=== PATIENT | female | born 1955 | race Caucasian/White ===

== ENCOUNTER → 2025-02-17 | Outpatient (CLI) | payer OTHER, SELFPAY ==
[2025-02-20 16:08] LABS: H. PYLORI STOOL AG Negative (Negative)
== END | disposition home or self-care (01) ==
LOC: LABSPEC 13:49
PROVIDERS: PCP Nurse Practitioner Family; Referring Provider Nurse Practitioner Acute Care; Visit Provider Nurse Practitioner Acute Care
DX: R10.9 Unspecified abdominal pain (principal); R14.0 Abdominal distension (gaseous); R63.4 Abnormal weight loss
CPT/HCPCS: 87338

== ENCOUNTER 2025-04-25 05:19 | Day surgery (SDC) | payer SELFPAY, OTHER ==
[2025-04-25] VITALS (8 sets, daily range): BP systolic 107–149; BP diastolic 54–62; PULSE 60–72; RESP 12–18; TEMP 36.2–36.5; O2SAT 99–100; BMI 23.4
--- OUTSIDE RECORDS SUMMARY | 2025-04-25 05:22 | XMS RPT_ITS | CCD ---
Author Organization [facility] Care Team Providers Care Eye Physician Name Role Phone IDNIANA DUGAN DO Attending Unavailable INDIANA DUGAN DO Primary Care Unavailable INDIANA DUGAN DO Admitting Unavailable TE CALIX Consulting Unavailable PROVIDER, UNKNOWN Consulting Unavailable JONATHAN SIMON NP-C Primary Care Unavailable JONATHAN SIMON NP-C Admitting Unavailable TE CALIX Consulting Unavailable JONATHAN SIMON NP-C Attending Unavailable PROVIDER, UNKNOWN Consulting Unavailable Alfred BENEFITS ANALYST-C, Jonathan Cai Primary Care Provider Alfred BENEFITS ANALYST-C, Jonathan Cai Referring Provider Kurt BENEFITS ANALYST-CSruthi Attending Provider Kurt BENEFITS ANALYST-CSruthi Referring Provider Alfred CHAVARRIA, Jonathan Cai Primary Care Unavailgabe e Sruthi Hicks Attending Unavailable Alfred CHAVARRIA, Jonathan Cai Referring Unavailgabe e Alfred CHAVARRIA, Jonathan Cai Primary Care Unavailgabe e Sruthi Hicks Referring Unavailable Sruthi Hicks Attending Unavailable Alfred CHAVARRIA, Jonathan Ayala Primary Care Unavailabl e Favio Frost Attending Unavailable Alfred BENEFITS ANALYST, Jonathanmickey Cai Referring Unavailabl e Medications Current Medications Medication Drug Class(es) Dates Sig (Normalized) Sig (Original) calcium acetate 667 mg oral tablet (1 source) Start: 02-15-2025 take 1 tablet by mouth once Calcium Acetate 667 mg tablet Active 667 mg PO ONCE February 15, 2025 12:00am factor 5 (1 source) Start: 02-15-2025 factor 5 Active PO February 15, 2025 12:00am Garlic (1 source) Non-Standardized Food Allergenic Extract Start: 02-15-2025 take 1 capsule by mouth once daily Garlic 500 mg capsule Active 500 mg PO daily February 15, 2025 12:00am Magnesium (1 source) Start: 02-15-2025 take 1 tablet by mouth once daily Magnesium 250 mg tablet Active 250 mg PO daily February 15, 2025 12:00am Multivitamin tablet (1 source) Start: 02-15-2025 Multivitamin tablet Active 1 {tbl} PO EVERY MORNING February 15, 2025 12:00am Eola-3 Fatty Acids 1,000 mg capsule (1 source) Start: 02-15-2025 take 1 capsule by mouth once daily Eola-3 Fatty Acids 1,000 mg capsule Active 1000 mg PO daily February 15, 2025 12:00am Problems Active Problems Problem Classification Problem Date Documented Da te Episodic/Chronic Abdominal pain (4 sources) Abdominal pain; Translations: [Unspecified abdominal pain] Onset: 02-15-2025 02-15-2025 Episodic Other gastrointestinal disorders (2 sources) Abdominal bloating; Translations: [Abdominal distension (gaseous)] 02-15-2025 Episodic Other gastrointestinal disorders (1 source) Abdominal distension (gaseous); Translations: [Abdominal distension (gaseous)] Onset: 02-15-2025 Episodic Other nutritional; endocrine; and metabolic disorders (2 sources) Weight decreased; Translations: [Abnormal weight loss] 02-15-2025 Episodic Other nutritional; endocrine; and metabolic disorders (1 source) Abnormal weight loss; Translations: [Abnormal weight loss] Onset: 02-15-2025 Episodic Residual codes; unclassified (2 sources) Family history of cancer of colon; Translations: [Family history of malignant neoplasm of digestive organs] 02-15-2025 Episodic Comment on above: Mother in her 40's Residual codes; unclassified (1 source) Family history of malignant neoplasm of digestive organs; Translations: [Family history of malignant neoplasm of digestive organs] Onset: 02-15-2025 Episodic Past or Other Problems Problem Classification Problem Date Documented Da te Episodic/Chronic Other acquired deformities (3 sources) Spondylolisthesis, lumbar region; Translations: [Spondylolisthesis , lumbar region] Onset: 02-03-2024 Episodic Spondylosis; intervertebral disc disorders; other back problems (2 sources) Radiculopathy, lumbar region; Translations: [Spinal stenosis, lumbar region without neurogenic claudication] Onset: 02-03-2024 Episodic Results Test Name Value Interpretation Reference Range Facility H. PYLORI STOOL AGon 025 H PYLORI STL AG Negative Normal Negative [facility] Comment on above: Result Comment: Perf ormed at: CB - [facility] [place] [address], [place] [id number] Performance Makeup Artist: Hoang Franklin PhD, Phone: [phone] Performed By: #### L 3100.1950 #### [facility] [address] [place], [place], [address] H. pylori Ag IA Ql (Stl)Orde red By: Sruthi Hicks on 02-17-2025 Stool Helicobacter pylori Antigen Negative Negative [facility] Comment on above: Performed at: CB - [facility] [id number], [place] [id number] Director: Hoang Franklin PhD, Phone: [phone] Gastroenterology Visit Repor ton 02-15-2025 Gastroenterology Visit Report [facility] [address] [place] [address] OFFICE VISIT Date of Service: 02/15/25 MR#: [id number] Acct: [id number] Name: JUAN JOSE GAXIOLA Rep #: [id number] : 1955 Provider: KARMEN pickett Age/Sex: 70/F Location: [facility] Status: Signed Intake Vital Signs 02/15/25 09:41 Height 5 ft 3 in Weight: 147 lb 8 oz BMI 26.1 BP 165/84 H Respiration 18 Pulse 75 Pulse Oximetry (%) 98 Oxygen Delivery Method room air Intake Visit Reasons: PRE COLON Chief Complaint: epigastric heaviness Supply Chain Buyer Required: No Accompanied by: Is patient in pain?: Yes Allergies No Known Allergies Allergy (Unverified 02/15/25 09:38) Medications ???Medication ???Instructions ???Recorded ???Confirmed ???Type calcium acetate 667 mg tablet 667 mg PO ONCE 02/15/25 02/15/25 H istory factor 5 PO 02/15/25 History garlic 500 mg capsule 500 mg PO QDAY 02/15/25 02/15/25 H istory magnesium 250 mg tablet 250 mg PO QDAY 02/15/25 02/15/25 H istory multivitamin 1 tab PO QAM 02/15/25 02/15/25 His tory omega-3 fatty acids 1,000 mg 1,000 mg PO QDAY 02/15/25 02/15/25 History capsule Have you fallen in the past year?: No PFSH Medical History H pylori ulcer Family History Other Colon cancer Social History Smoking Status: Never smoker alcohol intake: never substance use type: does not use HPI HPI Chief Complaint: epigastric heaviness Details: JUAN JOSE GAXIOLA, is a 70 F who presents to the office today for - seen in office today with her Her family history is significant for colon cancer - mom in her 40's - she is uncertain when her last colonoscopy was - thinks this was 10-15 years ago - denies any bleeding - c/o a lot of rumbling and a cramp - improves with abdominal massage - she has a BM daily - c/o epigastric pressure for quite awhile - worse after eating - denies any N/V - weight loss of 12lbs in the past 2-3 months - denies any HB - c/o bloating - h/o CCX - denies smoking - denies use of NSAIDS - denies any heart, lung or kidney disease [facility] reviewed no current pertinent records available reviewed Dr. Te ferro note ROS Const Constitutional: Positive for weight change (loss); No fatigue or fever(s) ENT ENT: No difficulty swallowing Gastro GI: Positive for abdominal pain, bloating, constipation and heartburn; No belching, change in bowel habits, change in stool character, coffee ground emesis, cramping, diarrhea, difficulty swallowing, feeling full early, excessive flatus, incontinent of stools, Vomiting blood/hematemesis, Blood in stool, loose stools, Black,tarry stools, nausea/dyspepsia, pain with swallowing, vomiting or other Musc Musculoskeletal: Positive for numbness, tingling, sciatica and leg pain at night; No joint pain Skin Skin: No yellowing of the eye or itchy eyes Neuro Neurology: Positive for numbness and tingling Psych Psychiatric: No anxiety and No depression Endo Endocrine: Positive for weight change (loss); No fatigue Aller/Imm Allergy/Immunologic: No itchy eyes Poli/Lymp Hematologic/Lymphatic: No easy bleeding or easy bruising Exam Const General: cooperative, healthy appearing, no acute distress and well developed Nutritional Appearance: average body habitus and well nourished Orientation: alert and oriented x3 HENMT Head: normocephalic Ears: hearing grossly normal bilaterally Mouth: moist mucous membranes Teeth and gingiva: dentures (upper) Eyes Conjunctivae: conjunctivae normal Sclera: sclerae normal Neck Neck: normal visual inspection, full ROM and trachea midline Resp Effort Inspection: normal respiratory effort, able to speak in complete sentences and symmetric chest movement Auscultation: Bilateral: Clear to Auscultation Cardio Palpation: normal PMI Rate: regular rate Rhythm: regular rhythm Heart Sounds: S1 normal and S2 normal GI Inspection: normal to inspection Auscultation: normal bowel sounds Palpation: soft and no hepatosplenomegaly Rectal Exam: deferred Skin General: no rashes or lesions noted and turgor normal Neuro General: patient alert and patient oriented x3 Cranial Nerves: other (CN's grossly intact, non-focal exam) Cognition: normal cognition Speech: speech normal Gait: normal gait Extrem General: normal to inspection (no edema noted) Psych Appearance: grossly normal and well kempt Affect: normal affect Attitude: cooperative Thought Process: normal Assessment and Plan Assessment and Plan (1) Abdominal pain: Status: Acute Qualifiers: Abdominal (more content not included)... Normal [facility] CV ARTERIAL U OR L SINGLE PH [facility] 05-23-2024 CV ARTERIAL U OR L SINGLE [place] [id number] Patient: JUAN JOSE GAXIOLA Phone#: : 1955 Age: 69 Gender: F Pt. Type: Out Account: [id number] Location: [facility] Ordering: JONATHAN SIMON Exam Date: 05/23/2024/13:04 Family Phys: TE CALIX Charge Code: 800926 Physician: Taney Order #: [id number] Dose#: PROCEDURE: ARTERIAL BILAT U OR L SINGLE PHYSIOLOGY COMPARISON: None. INDICATIONS: Pain TECHNIQUE: Resting continuous-wave Doppler recordings were obtained from the femoral, popliteal, tibial and dorsalis pedis arteries. Resting volume pulse recordings and segmental limb pressures were obtained at the upper thigh, lower thigh, upper calf and ankle levels. CONTINUOUS-WAVE DOPPLER RIGHT LEFT Posterior Tibial Artery Triphasic Triphasic Dorsalis Pedis Triphasic Triphasic SEGMENTAL SYSTOLIC LIMB PRESSURES RIGHT (mmHg) LEFT (mmHg) Brachial: 147 153 Ankle (DPA): 178 171 Ankle (CASING IN LINE FEEDER): 179 169 ANKLE BRACHIAL INDEX RIGHT LEFT 1.17 1.12 Digital Artist: SHYAM FINDINGS: Right Lower Extremity: The right lower extremity demonstrates normal triphasic Doppler signals at the posterior tibial, and dorsalis pedis arteries. Volume pulse recordings are normal throughout the extremity demonstrating a sharp systolic peak and prominent dicrotic notch. There are no significant pressure differentials in the segmental limb pressures when comparing side to side or from level to level Left Lower Extremity: The left lower extremity demonstrates normal triphasic Doppler signals at the posterior tibial, and dorsalis pedis arteries. Volume pulse recordings are normal throughout the extremity demonstrating a Continued Report - Page 2 of 2 Patient: JUAN JOSE GAXIOLA Phone#: : 1955 Age: 69 Gender: F Pt. Type: Out Account: [id number] Location: [facility] Ordering: JONATHAN SIMON Exam Date: 05/23/2024/13:04 Family Phys: TE CALIX Charge Code: [id number] Physician: Taney Order #: [id number] Dose#: sharp systolic peak and prominent dicrotic notch. There are no significant pressure differentials in the segmental limb pressures when comparing side to side or from level to level. CONCLUSION: 1. Normal DELFIN bilaterally. Right DELFIN is 1.17. The left DELFIN is 1.12. Dictated by: Ina Carrero MD on 05/23/2024 at 18:31 Approved by: Ina Carrero MD on 05/23/2024 at 18:32 Normal [facility] CV VENOUS BILATERAL LOWERon 05-23-2024 CV VENOUS BILATERAL LOWER [place] [id number] Patient: JUAN JOSE GAXIOLA Phone#: : 1955 Age: 69 Gender: F Pt. Type: Out Account: [id number] Location: 052 Ordering: JONATHAN GARCIA Exam Date: 05/23/2024/13:00 Family Phys: Charge Code: 227546 Physician: Taney Order #: [id number] Dose#: PROCEDURE: VENOUS DOPPLER BILAT LEG COMPARISON: None. INDICATIONS: LEG PAIN TECHNIQUE: Color duplex Doppler ultrasound evaluation analysis was performed in the usual manner. SALES TEAM RECRUITER: SRUTHI REY RISK FACTORS FOR VENOUS DISEASE: EXAMINATION: RIGHT +Present -Reduced o Absent LEFT SPONT PHASIC AUG REFLUX COMP SPONT PHASIC AUG REFLUX COMP + + + o + CFV + + + o + + SFJ + + + + o + FV (prox) + + + o + + FV (mid) + + FV (dist) + + + + o + POP V + + + o + + + + o + T/P TRUNK + + + o + + + + o + PTV + + + o + + + + o + PERONEAL V + + + o + + GSV + GASTROC SOLEAL V SALES TEAM RECRUITER'S NOTES: FINDINGS: THROMBI: None visible. COMPRESSIBILITY: Normal. Continued Report - Page 2 of 2 Patient: JUAN JOSE GAXIOLA Phone#: : 1955 Age: 69 Gender: F Pt. Type: Out Account: [id number] Location: 052 Ordering: JONATHANMICKEY GARCIA Exam Date: 05/23/2024/13:00 Family Phys: Charge Code: [id number] Physician: Taney Order #: [id number] Dose#: OTHER: Negative. CONCLUSION: 1. There is no evidence of superficial or deep vein thrombus. Dictated by: Ina Carrero MD on 05/23/2024 at 18:29 Approved by: Ina Carrero MD on 05/23/2024 at 18:31 Normal [facility] Vital Signs Date Time Vital Sign Value Performing Clinician Claudia moreau 02-15-2025 09:41-0400 Body height 160.02 cm Jonathan Simon BENEFITS ANALYST-C Work Phone: [facility] 02-15-2025 09:41-0400 Body mass index (BMI) [Ratio] 26.1 kg/m2 Jonathan Simon BENEFITS ANALYST-C Work Phone: [facility] 02-15-2025 09:41-0400 Body weight 66.9 kg Jonathan Simon BENEFITS ANALYST-C Work Phone: [facility] 02-15-2025 09:41-0400 Diastolic blood pressure 84 mm[Hg] Jonathan Simon BENEFITS ANALYST-C Work Phone: [facility] 02-15-2025 09:41-0400 Heart rate 75 /min Jonathan Simon BENEFITS ANALYST-C Work Phone: [facility] 02-15-2025 09:41-0400 Respiratory rate 18 /min Jonathan Simon BENEFITS ANALYST-C Work Phone: [facility] 02-15-2025 09:41-0400 SaO2% (BldA) [Mass fraction] 98 % Jonathan Simon BENEFITS ANALYST-C Work Phone: [facility] 02-15-2025 09:41-0400 Systolic blood pressure 165 mm[Hg] Jonathan Simon BENEFITS ANALYST-C Work Phone: [facility] Encounters Encounter Date Encounter Type Care Provider Facility Start: 04-25-2025 ambulatory Jonathan sheldon BENEFITS ANALYST Facility:[facility] Start: 02-17-2025 End: 02-17-2025 ambulatory Jonathan Simon BENEFITS ANALYST-C Work Phone: [facility] Work Phone: Start: 02-17-2025 End: 02-17-2025 Patient encounter procedure Sruthi Hicks NP-C -Laboratory, Specimen Work Phone: Start: 02-17-2025 End: 02-17-2025 ambulatory Jonathan Simon BENEFITS ANALYST Facility:[facility] Start: 02-15-2025 End: 02-15-2025 Patient encounter procedure Sruthi PERAZA -[facility] Work Phone: Start: 02-15-2025 End: 02-15-2025 ambulatory Jonathan Simon NP Facility:[facility] Start: 05-23-2024 End: 05-23-2024 ambulatory JONATHAN SIMON [facility] Start: 02-03-2024 End: 02-05-2024 ambulatory [place] DO BELLTS [facility] Payers Date Payer Category Payer Unknown [id number] 2025 Self-pay 2025 Unknown [id number] Unknown [id number] Unknown [id number] Unknown [id number] Social History Date Type Detail Facility [facility]: [facility] Start: 02-22-2025 Sex Female (finding) [facility] Start: 1955 Sex Assigned At Female [facility] Gender Identity Identifies as fe male gender (finding) [facility] Evaluation note 02-15-2025 Note Date & Type Note Facility 02-15-2025 Evaluation note Diagnosis Onset Date Resolution Abdominal pain acute February 15, 2025 9:31am Bloating acute February 15 9:31am Family history of malignant neoplasm of colon in first degree relative diag acute February 15, 2025 9:31am Weight loss acute February 15 9:31am [facility] Work Phone: Reason for referral (narrative) Note Date & Type Note Facility Reason for referral (narrative) No reason for referral information available [facility] Work Phone: Summary Purpose Family History No Family History Records Found Relationship Condition Age at Onset Recorded Date/T jhon Not Specified Malignant neoplasm of colon Unknown Advance Directives No Advanced Directives Records FoundNo Advanced Directives Records Found Chief Complaint and Reason for Visit Chief Complaint Admit Date PRE COLON February 15, 2025 9:31 am Reason for Visit Admit Date Abdominal pain February 15, 2025 9:31 am Bloating February 15, 2025 9:31 am Family history of malignant neoplasm of colon in first degree relative diag February 15, 2025 9:31am Weight loss February 15, 2025 9:31 am Additional Source Comments INFORMATION SOURCE (unrecogn ized section and content) DATE CREATED AUTHOR 05/30/2024 [facility] DATE CREATED AUTHOR AUTHOR'S ORGANIZ ATION 04/24/2025 [facility] Care Teams (unrecognized sec tion and content) Team Status: Active Member Role Status Dates Jonathan Simon NP, BENEFITS ANALYST-C Primary Care Provider Activ e Team Status: Inactive Member Role Status Dates Jonathan Simon NP, BENEFITS ANALYST-C Primary Care Provider Activ e Start: February 15, 2025 End: February 15, 2025 Jonathan Simon NP, BENEFITS ANALYST-C Referring Provider Active Start: February 15, 2025 End: February 15, 2025 KARMEN Carvajal Attending Provider Active Start: February 15, 2025 End: February 15, 2025 Team Status: Inactive Member Role Status Dates Jonathan Simon NP, BENEFITS ANALYST-C Primary Care Provider Activ e Start: February 17, 2025 End: February 17, 2025 Sruthi Hicks NP-C Attending Provider Active Start: February 17, 2025 End: February 17, 2025 Sruthi Hicks NP-Ambreen Referring Provider Active Start: February 17, 2025 End: February 17, 2025 Goals (unrecognized section and content) Goals may be documented in a n alternate section FOR RECORDS PERTAINING TO PATIENTS WHO ARE OR HAVE BEEN ENROLLED IN A CHEMICAL DEPENDENCY/SUBSTANCEABUSE PROGRAM, SOME INFORMATION MAY BE OMITTED. This clinical summary was aggregated from multiple sources. Caution should be exercised in using it in the provision of clinical care. This summary normalizes information from multiple sources, and as a consequence, information in this document may materially change the coding, format and clinical context of patient data. In addition, data may be omitted in some cases. CLINICAL DECISIONS SHOULD BE BASED ON THE PRIMARY CLINICAL RECORDS. [employer] [facility]. provides no warranty or guarantee of the accuracy or completeness of information in this document.
[2025-04-25] MEDS: Lactated Ringers 1,000 ML 15 ML IV (05:59)
--- NOTE | 2025-04-25 06:24 | PCM.PRE.AN2 ---
ASA Classification* ASA Classification ASA Classification: 2 Assessment & Plan Anesthesia* Anesthesia Assessment Anesthesia Assessment: Discussed sedation and/or anesthesia options, risks, benefits, and alternatives with patient/parents/legal guardian/POA. Questions invited. The patient/parents/legal guardian/POA seems to understand and agrees to proceed with anesthesia plan. Reviewed the physical assessment, medical history, allergy history and patient home medications list prior to surgery/procedure/anesthetic and documented any changes. Performed airway and anesthesia risk assessments. Anesthesia Type Anesthesia Type: MAC History Source History Obtained from:: Patient and Chart Anesthesia Focused Assessment* Temperature: 97.7 F Pulse Rate: 60 Blood Pressure: 149/54 Respiratory Rate: 18 Pulse Ox: 100 Oxygen Delivery Method: Room Air Airway Assessment Mouth opens: >3 cm Mallampati Score: II Teeth Condition: Dentures and Upper Neck Range of motion (ROM): Full ROM Labs Anesthesia Preop lab: CBC CHEMISTRY COAG Pre-Assessment Diagnosis/Proposed Procedure Planned Operative Procedure(s): Colonoscopy, EGD Anesthesia History Anesthesia History - housesmith: Anesthesia History - housesmith Hx Hospitalization No 04/20/25 15:02 Any Problems With Anesthesia No 04/20/25 15:02 Cholinesterase deficiency No 04/20/25 15:02 You/Your Family Experience No 04/20/25 15:02 fever (hyperthermia) with Relationship Recent Exposure to Contagious No 04/25/25 05:49 Disease Does patient have nerve No 04/20/25 15:02 stimulator Patient instructed to have device shut off --Does patient have Pacemaker No 04/25/25 05:50 or ICD? When Was Last Pacemaker Check QUESTION #4 FULL TEXT: You/Your Family Experience fever (hyperthermia) with Anesthesia Any additional information?: No Last Oral Intake Last Oral intake: Last Oral Intake NPO since 01:30 04/25/25 05:50 Meds taken in AM with sips of No 04/25/25 05:50 water? Meds patient instructed to take am of surgery Any additional information?: No PONV PONV - housesmith: PONV - housesmith Female Yes 04/20/25 15:02 HX of Motion Sickness No 04/20/25 15:02 HX of N/V After Surgery No 04/20/25 15:02 Non-Smoker Yes 04/20/25 15:02 Duration of Surgery greater No 04/20/25 15:02 than 60 minutes Number of Risk Factors 2 04/20/25 15:02 PONV Score Moderate Risk 04/20/25 15:02 Any additional information?: No Height & Weight Height & Weight: Anesthesia: Height & Weight Height 5 ft 3 in 04/25/25 05:50 Weight: 59.965 kg 04/25/25 05:50 Body Mass Index (BMI) 23.4 04/25/25 05:50 Respiratory Assessment Respiratory Assessment - housesmith: Respiratory Tract Infection Hx - housesmith Hx Respiratory Tract Infection No 04/20/25 15:02 Any additional information?: No STOP Sleep Apnea STOP Sleep Apnea - housesmith: STOP Sleep Apnea - housesmith Hx Hypertension No 04/20/25 15:02 Hx Sleep Apnea No 04/20/25 15:02 CPAP BIPAP Do you snore loudly (louder No 04/20/25 15:02 than talking or can be heard Do you often feel tired/ No 04/20/25 15:02 fatigued/ sleepy during daytime? Has anyone observed you stop No 04/20/25 15:02 breathing during sleep? STOP Results Negative 04/20/25 15:02 QUESTION #5 FULL TEXT : Do you snore loudly (louder than talking or can be heard through closed doors)? 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 Specify any problems Hx of Preganancy in last 3 N/A 04/20/25 15:02 Months Nurse Filling Out Transfusion NBUCHER 04/20/25 15:02 & Questions: Date: 04/20/25 04/20/25 15:02 Time: 15:03 04/20/25 15:02 Patient unable to answer at this time (ie. confused, unrespo Any additional information?: No /Reproduction History /Reproductive History - housesmith: /Reproductive Hx- housesmith Hx Now No 04/20/25 15:02 Gestational Age (in weeks): EDC: Hx Hx Para Hx Section SAB No 04/20/25 15:02 Any additional information?: No Active Medications Active Medications: Current Medications Generic Name Dose Route Start Last Admin Trade Name Freq PRN Reason Stop Dose Admin Lactated Ringer's 1,000 mls @ 15 mls/hr 04/25/25 05:30 04/25/25 05:59 IV 15 mls/hr .Q48H SINDY Administration PFSH Medical History Wears glasses Wears dentures Post-menopausal High cholesterol Non-smoker H pylori ulcer Home Medications ?Medication ?Instructions ?Recorded ?Last Taken ?Type calcium acetate 667 mg tablet 667 mg PO ONCE 02/15/25 04/20/25 History factor 5 PO 02/15/25 04/18/25 History garlic 500 mg capsule 500 mg PO QDAY 02/15/25 04/18/25 History magnesium 250 mg tablet 250 mg PO QDAY 02/15/25 04/20/25 History multivitamin 1 tab PO QAM 02/15/25 04/18/25 History omega-3 fatty acids 1,000 mg 1,000 mg PO QDAY 02/15/25 04/18/25 History capsule ondansetron HCl 4 mg tablet 4 mg PO .COMPLEX #5 tabs 03/09/25 04/24/25 Rx peg 3350-sod sulf,[id number] See Rx Instructions PO .COMPLEX #2 03/09/25 04/25/25 Rx 178.7-7.3-0.5-1.12-0.9 gram oral mL soln (Suflave) Allergy/AdvReac Type Severity Reaction Status Date / Time No Known Allergies Allergy Verified 04/25/25 05:46 Family History Other Colon cancer Surgical History History of colonoscopy History of meniscectomy of right knee History of hernia repair History of cholecystectomy Social History Smoking Status: Never smoker alcohol intake: never substance use type: does not use Addt'l Information Additional Findings: Stopped 1 week ago MVI, Calcium/ Magnesium, [place] 3 Oils, Review of Systems (Anesthesia) ROS Narrative System reviewed and no additional complaints, except as documented.
--- NOTE | 2025-04-25 06:30 | EGD_PTH ---
PATIENT: JUAN JOSE GAXIOLA LOC: EN U#:[id number] AGE/SX: 70/F ROOM: RE04/25/[address]: Dr. Favio Frost DO : 1955 BED: DIS: 04/25/2025 SPEC #: [id number] RECD: 04/25/25 11:14 STATUS: CHARLEEN BERTA #: [id number] LUCY: 04/25/25 06:[address]: Favio Frost DEPT: SURGICAL PATHOLOGY RECD BY: Grey Balbuena ENTERED: 04/25/25 11:45 SP TYPE: EGD BIOPSY SYEDA DR: Mirian Simon, OPERATIONS SPECIALIST-C Tissues: A - Duodenum, NOS B - Gastric mucous membrane C - COLON BIOPSY Procedures: Immunohistochemical Stains Surgery Specimen Level IV HEADER OPERATION: Colonoscopy, EGD and biopsy with polypectomy PRE-OP DIAGNOSIS: Abdominal pain, bloating, weight loss TISSUE SUBMITTED: A- Duodenum biopsy, B- Gastric body biopsy, C- Hepatic flexure polyp MICROSCOPIC DIAGNOSIS A. Small intestine, duodenum, biopsies: * Benign without active inflammation B. Stomach, gastric body: * Fundic mucosa with slight chronic inflammation * An immunohistochemical stain for Helicobacter pylori is negative C. Large intestine, hepatic flexure polyp: * Tubular adenoma A. MICROSCOPIC DESCRIPTION Slides are reviewed. All matched controls reacted appropriately. These tests were developed and their performance characteristics determined by [facility]. They may not have been cleared or approved by the U.S. Food and Drug Administration. The FDA has determined that such clearance or approval is not necessary. The above immunohistochemical/dualISH markers are ordered and reviewed by the Pathologist. GROSS DESCRIPTION A. Received in fixative is one container labeled with the patient's name and designated Duodenum biopsy. The specimen consists of multiple irregular fragments of light sadler soft tissue that in aggregate measure 1 x 0.7 x 0.2 cm. The specimen is totally submitted in one cassette. B. Received in fixative is one container labeled with the patient's name and designated Gastric body biopsy. The specimen consists of two irregular fragments of light sadler soft tissue that in aggregate measure 0.9 x 0.4 x 0.2 cm. The specimen is totally submitted in one cassette. C. Received in fixative is one container labeled with the patient's name and designated Hepatic flexure polyp. The specimen consists of one irregular fragment of light sadler soft tissue that measures 0.4 x 0.4 x 0.2 cm. The specimen is totally submitted in one cassette. 04/25/2025 [facility]:[id number]
--- NOTE | 2025-04-25 06:45 | HP.PCM_ITS ---
HPI - General General Date of Admission: 04/25/25 Date of Service: 04/25/25 Chief Complaint: abdominal pain HPI Narrative Chief Complaint: epigastric heaviness Details: JUAN JOSE GAXIOLA, is a 70 F who presents for the evaluation of abdominal pain. - seen in office today with her Her family history is significant for colon cancer - mom in her 40's - she is uncertain when her last colonoscopy was - thinks this was 10-15 years a go - denies any bleeding - c/o a lot of rumbling and a cramp - improves with abdominal massage - she has a BM daily - c/o epigastric pressure for quite awhile - worse after eating - denies any N/V - weight loss of 12lbs in the past 2-3 months - denies any HB - c/o bloating - h/o CCX - denies smoking - denies use of NSAIDS - denies any heart, lung or kidney disease Clinisync reviewed no current pertinent records available reviewed Dr. Te ferro note [facility] Medical History Wears glasses Wears dentures Post-menopausal High cholesterol Non-smoker H pylori ulcer Home Medications ?Medication ?Instructions ?Recorded ?Last Taken ?Type calcium acetate 667 mg tablet 667 mg PO ONCE 02/15/25 04/20/25 History factor 5 PO 02/15/25 04/18/25 History garlic 500 mg capsule 500 mg PO QDAY 02/15/2502/07 History magnesium 250 mg tablet 250 mg PO QDAY 02/15/2504/09 History multivitamin 1 tab PO QAM 02/15/25 History omega-3 fatty acids 1,000 mg 1,000 mg PO QDAY 02/15/25 04/18/25 History capsule ondansetron HCl 4 mg tablet 4 mg PO .COMPLEX #5 tabs 0 03/09/25 04/24/25 Rx peg 3350-sod sulf,[id number] See Rx Instructions PO .COMPLEX #2 03/09/25 04/25/25 Rx 178.7-7.3-0.5-1.12-0.9 gram oral mL soln (Suflave) Allergy/AdvReac Type Severity Reaction Status Date / Time No Known Allergies Allergy Verified 04/25/25 05:46 Family History Other Colon cancer Surgical History History of colonoscopy History of meniscectomy of right knee History of hernia repair History of cholecystectomy Social History Smoking Status: Never smoker alcohol intake: never substance use type: does not use ROS Constitutional Constitutional: Denies fatigue, fever(s), poor appetite, weight gain or weight loss Gastrointestinal Gastrointestinal: Denies belching, bloating, change in bowel habits, change in stool character, chewing difficulty, coffee ground emesis, constipation, cramping, diarrhea, dyspepsia, dysphagia, early satiety, excessive flatus, fecal incontinence, heartburn, hematemesis, hematochezia, hemorrhoids, loose stools, melena, nausea, odynophagia, rectal bleeding, tenesmus, vomiting or weight changes Vital Signs Vital Signs Vital Signs: 04/25/25 05:49 04/25/25 05:50 04/25/25 06:31 Temperature 97.7 F L 97.7 F L Temperature Source Temporal Pulse Rate 60 60 Respiratory Rate 18 18 Respiratory Pattern Normal Blood Pressure 149/54 H 149/54 H Blood Pressure Mean 85 Blood Pressure Source Monitor Blood Pressure Position Semi-Fowlers Blood Pressure Location Left Arm Pulse Ox 100 100 Oxygen Delivery Method Room Air Room Air Weight Weight: 132 lb 3.2 oz Body Mass Index (BMI) 23.4 Physical Exam Const alert, oriented x3, no apparent distress and healthy appearing General Appearance: cooperative GI normal to inspection, nondistended, normoactive bowel sounds, soft to palpation, non-tender and non-distended Percussion: normal to percussion Rectal Exam: deferred Assessment & Plan Assessment/Plan (1) Weight loss: (2) Bloating: (3) Abdominal pain: QUALIFIERS: Abdominal location: epigastric Qualified Code(s): R10.13 - Epigastric pain PLAN: Assessment and Plan Assessment and Plan (1) Abdominal pain: Status: Acute Qualifiers: Abdominal location: epigastric Qualified Code(s): R10.13 - Epigastric pain (2) Bloating: Status: Acute (3) Weight loss: Status: Acute (4) Family history of malignant neoplasm of colon in first degree relative diagnosed when younger than 60 years of age: Status: Acute Comment: Mother in her 40's Orders: Orders H. PYLORI STOOL AG Today R10.9 - Unspecified abdominal pain, R14.0 - Abdominal distension (gaseous), R63.4 - Abnormal weight loss Plan 70-year-old female presents for initial consultation. She is referred by Dr. Tiwari with complaints of epigastric pressure and a history of H. pylori approximately 15 years ago. She reports a long history of epigastric bloating, pressure that worsens with PO intake. She denies any HB, N/V or dysphagia. She does endorse an unexplained weight loss of 12lbs. Family history is significant for mother with colon cancer in her 40's. I have ordered stool testing and if negative will start daily PPI. She will proceed with bidirectional endoscopies and follow-up in the office post procedure. Patient Instructions: Complete H. pylori stool testing - if negative will start daily PPI EGD and Colonoscopy Follow-up in the office post procedure
--- NOTE | 2025-04-25 07:22 | PCM.POST.ANE ---
Anesthesia: Postop Eval I Current Vital Signs Temperature: 97.1 F Pulse Rate: 72 Blood Pressure: 110/62 Respiratory Rate: 18 Pulse Ox: 100 Assessment Airway patent: Yes Spontaneous unlabored respirations: Yes nausea: No Vomiting: No Anesthesia Complication: No Fluid Hydration Crystalloid volume administer (ml): 500 Total IV fluid infused: 500 Progress Note Anesthesia document: Postop Eval 1 completed: Yes
--- NOTE | 2025-04-25 07:28 | OP.EGD_ITS ---
Patient Name: Urmila Gaytan Procedure Date: 04/25/2025 6:30 AM Date of : 1955 Age: 70 Procedure: Upper GI endoscopy Indications: Epigastric abdominal pain, Functional Dyspepsia Providers: Favio Frost DO Referring MD: Mirian Simon Remedy Developer, Remedy Developer-c Medicines: Monitored Anesthesia Care Patient Profile: This is a 70 year old female. Refer to note in patient chart for documentation of history and physical. Patient has symptoms of chronic abdominal cramping, chronic abdominal distention, chronic epigastric abdominal pain and chronic nausea. Complications: No immediate complications. Procedure: Pre-Anesthesia Assessment: - Prior to the procedure, a History and Physical was performed, and patient medications and allergies were reviewed. The patient is competent. The risks and benefits of the procedure and the sedation options and risks were discussed with the patient. All questions were answered and informed consent was obtained. Patient identification and proposed procedure were verified by the physician in the pre-procedure area. Mental Status Examination: alert and oriented. Airway Examination: normal oropharyngeal airway and neck mobility. Respiratory Examination: clear to auscultation. CV Examination: normal. Prophylactic Antibiotics: The patient does not require prophylactic antibiotics. Prior Anticoagulants: The patient has taken no anticoagulant or antiplatelet agents. ASA Grade Assessment: II - A patient with mild systemic disease. After reviewing the risks and benefits, the patient was deemed in satisfactory condition to undergo the procedure. The anesthesia plan was to use monitored anesthesia care (MAC). Immediately prior to administration of medications, the patient was re-assessed for adequacy to receive sedatives. The heart rate, respiratory rate, oxygen saturations, blood pressure, adequacy of pulmonary ventilation, and response to care were monitored throughout the procedure. The physical status of the patient was re-assessed after the procedure. After obtaining informed consent, the endoscope was passed under direct vision. Throughout the procedure, the patient's blood pressure, pulse, and oxygen saturations were monitored continuously. The colonoscope was introduced through the mouth, and advanced to the third part of the duodenum. Small bowel enteroscopy was deemed necessary. The upper GI endoscopy was accomplished without difficulty. The patient tolerated the procedure well. Scope In: 6:54:19 AM Scope Out: 6:58:37 AM Total Procedure Duration Time 0 hours 4 minutes 18 seconds Findings: The examined esophagus was normal. Patchy mildly erythematous mucosa without bleeding was found in the gastric body. Biopsies were taken with a cold forceps for histology. Biopsies were taken with a cold forceps for Helicobacter pylori testing. Verification of patient identification for the specimen was done. Estimated blood loss was minimal. Localized mild inflammation characterized by erythema was found in the entire duodenum. Biopsies were taken with a cold forceps for histology. Verification of patient identification for the specimen was done. Estimated blood loss was minimal. Impression: - Normal esophagus. - Erythematous mucosa in the gastric body. Biopsied. - Chronic duodenitis. Biopsied. Recommendation: - Discharge patient to home. - Resume previous diet. - Continue present medications. - Await pathology results. Procedure Code(s): --- Professional --- 10990, Small intestinal endoscopy, enteroscopy beyond second portion of duodenum, not including ileum; with biopsy, single or multiple CPT copyright 2021 [employer]. All rights reserved. The codes documented in this report are preliminary and upon medical record coder review may be revised to meet current compliance requirements. Favio Frost DO 04/25/2025 7:27:24 AM This report has been signed electronically. Number of Addenda: 0 Note Initiated On: 04/25/2025 6:30 AM
--- NOTE | 2025-04-25 07:28 | OP.CCLET_ITS ---
04/25/2025 Mirian Simon Parks And Recreation Worker, Parks And Recreation Worker-c Re : Upper GI endoscopy procedure for Urmila Gaytan Dear Alfred This procedure was performed on Friday, April 25, 2025. My impressions and recommendations are as follows: Impressions : - Normal esophagus. - Erythematous mucosa in the gastric body. Biopsied. - Chronic duodenitis. Biopsied. Recommendations : - Discharge patient to home. - Resume previous diet. - Continue present medications. - Await pathology results. My findings are described in the full procedure note, which is enclosed. If I can be of further assistance, please feel free to contact me at . Sincerely, Favio Frost DO 04/25/2025 7:27:24 AM This report has been signed electronically.
--- NOTE | 2025-04-25 07:34 | OP.COLON_ITS ---
Patient Name: Urmila Gaytan Procedure Date: 04/25/2025 6:58 AM Date of : 1955 Age: 70 Procedure: Colonoscopy Indications: Screening for colorectal malignant neoplasm, This is the patient's first colonoscopy Providers: Favio Frost DO Referring MD: Mirian Simon Shrimper, Shrimper-c Medicines: Monitored Anesthesia Care Patient Profile: This is a 70 year old female. Refer to note in patient chart for documentation of history and physical. Patient has symptoms of chronic abdominal cramping, chronic abdominal distention, chronic epigastric abdominal pain and chronic nausea. Last Colonoscopy: none. The patient's first colonoscopy is today. Complications: No immediate complications. Procedure: Pre-Anesthesia Assessment: - Prior to the procedure, a History and Physical was performed, and patient medications and allergies were reviewed. The patient is competent. The risks and benefits of the procedure and the sedation options and risks were discussed with the patient. All questions were answered and informed consent was obtained. Patient identification and proposed procedure were verified by the physician in the pre-procedure area. Mental Status Examination: alert and oriented. Airway Examination: normal oropharyngeal airway and neck mobility. Respiratory Examination: clear to auscultation. CV Examination: normal. Prophylactic Antibiotics: The patient does not require prophylactic antibiotics. Prior Anticoagulants: The patient has taken no anticoagulant or antiplatelet agents. ASA Grade Assessment: II - A patient with mild systemic disease. After reviewing the risks and benefits, the patient was deemed in satisfactory condition to undergo the procedure. The anesthesia plan was to use monitored anesthesia care (MAC). Immediately prior to administration of medications, the patient was re-assessed for adequacy to receive sedatives. The heart rate, respiratory rate, oxygen saturations, blood pressure, adequacy of pulmonary ventilation, and response to care were monitored throughout the procedure. The physical status of the patient was re-assessed after the procedure. After I obtained informed consent, the scope was passed under direct vision. Throughout the procedure, the patient's blood pressure, pulse, and oxygen saturations were monitored continuously. The colonoscope was introduced through the anus and advanced to the cecum, identified by appendiceal orifice and ileocecal valve. The colonoscopy was performed without difficulty. The patient tolerated the procedure well. The quality of the bowel preparation was good. The ileocecal valve, appendiceal orifice, and rectum were photographed. Scope In: 7:00:32 AM Scope Withdrawal Time 0 hours 10 minutes 57 seconds Scope Out: 7:15:55 AM Total Procedure Duration Time 0 hours 15 minutes 23 seconds Findings: The perianal and digital rectal examinations were normal. A 5 mm polyp was found in the hepatic flexure. The polyp was sessile. The polyp was removed with a jumbo cold forceps. Resection and retrieval were complete. The exam was otherwise normal throughout the examined colon. Impression: - One 5 mm polyp at the hepatic flexure, removed with a jumbo cold forceps. Resected and retrieved. Recommendation: - Discharge patient to home. - Resume previous diet. - Continue present medications. - Await pathology results. - Repeat colonoscopy in 5 years for surveillance. Procedure Code(s): --- Professional --- 40262, Colonoscopy, flexible; with biopsy, single or multiple CPT copyright 2021 [employer]. All rights reserved. The codes documented in this report are preliminary and upon business banking representative review may be revised to meet current compliance requirements. Favio Frost DO 04/25/2025 7:34:11 AM This report has been signed electronically. Number of Addenda: 0 Note Initiated On: 04/25/2025 6:58 AM
--- NOTE | 2025-04-25 07:35 | OP.CCLET_ITS ---
04/25/[address] Roller Operator, Road Roller Operator-c Re : Colonoscopy procedure for Urmila Gaytan Dear Alfred This procedure was performed on Friday, April 25, 2025. My impressions and recommendations are as follows: Impressions : - One 5 mm polyp at the hepatic flexure, removed with a jumbo cold forceps. Resected and retrieved. Recommendations : - Discharge patient to home. - Resume previous diet. - Continue present medications. - Await pathology results. - Repeat colonoscopy in 5 years for surveillance. My findings are described in the full procedure note, which is enclosed. If I can be of further assistance, please feel free to contact me at . Sincerely, Favio Frost, 04/25/2025 7:34:11 AM This report has been signed electronically.
--- NOTE | 2025-04-25 08:01 | POSTOPAN2_ITS ---
Anesthesia Postop Eval I Sum Postop Eval Completion status Anesthesia document: Postop Eval 1 completed: Yes Anesthesia Postop Eval I Summary Anesthesia Postop Eval I Summary: Anesthesia Postop Eval I: Assessment Summary Airway patent Yes 04/25/25 07:22 [email or web address] Spontaneous unlabored Yes 04/25/25 07:22 [email or web address] [email or web address].[email or web address] respirations Mental status nausea No 04/25/25 07:22 THERMITE WELDER.[email or web address] Vomiting No 04/25/25 07:22 [email or web address] [email or web address] Anesthesia Postop Eval I: Fluid Summary Crystalloid volume administer 500 04/25/25 07:22 [email or web address] [email or web address] (ml) Colloids volume administered ( ml) Blood Product volume administered (ml) Total IV fluid infused 500 04/25/25 07:22 [email or web address] [email or web address].[email or web address] Anesthesia Postop Eval I: Summary Notes Anesthesia Complication No 04/25/25 07:22 THERMITE [email or web address].[email or web address] Anesthesia Complication Comment: Post-operative progress note Anesthesia: Postop Eval II Evaluation Mental status: Awake Pain Level: 0 nausea: No Vomiting: No
--- NOTE | 2025-04-25 08:01 | PCM.POSTANE2 ---
Anesthesia Postop Eval I Sum Postop Eval Completion status Anesthesia document: Postop Eval 1 completed: Yes Anesthesia Postop Eval I Summary Anesthesia Postop Eval I Summary: Anesthesia Postop Eval I: Assessment Summary Airway patent Yes 04/25/25 07:22 DATABASE REPORTING CONSULTANT.[email or web address] Spontaneous unlabored Yes 04/25/25 07:22 DATABASE REPORTING CONSULTANT.CSIR respirations Mental status nausea No 04/25/25 07:22 DATABASE REPORTING CONSULTANT.CSIR Vomiting No 04/25/25 07:22 DATABASE REPORTING CONSULTANT.CSIR Anesthesia Postop Eval I: Fluid Summary Crystalloid volume administer 500 04/25/25 07:22 DATABASE REPORTING CONSULTANT.CSIR (ml) Colloids volume administered ( ml) Blood Product volume administered (ml) Total IV fluid infused 500 04/25/25 07:22 DATABASE REPORTING CONSULTANT.CSIR Anesthesia Postop Eval I: Summary Notes Anesthesia Complication No 04/25/25 07:22 DATABASE REPORTING CONSULTANT.CSIR Anesthesia Complication Comment: Post-operative progress note Anesthesia: Postop Eval II Evaluation Mental status: Awake Pain Level: 0 nausea: No Vomiting: No
== END 2025-04-25 08:19 | disposition home or self-care (01) ==
LOC: EN 05:20 → AC 05:20
PROVIDERS: PCP Nurse Practitioner Family; Referring Provider Nurse Practitioner Family; Visit Provider Internal Medicine Gastroenterology
PROC: 0DJD8ZZ Inspection of Lower Intestinal Tract, Via Natural or Artificial Opening Endoscopic (ICD-10-PCS; CPT 45378; principal; 2025-04-25 06:25)
DX: Z12.11 Encounter for screening for malignant neoplasm of colon (principal); E78.00 Pure hypercholesterolemia, unspecified; K29.80 Duodenitis without bleeding; Z80.0 Family history of malignant neoplasm of digestive organs; K29.50 Unspecified chronic gastritis without bleeding; D12.3 Benign neoplasm of transverse colon
CPT/HCPCS: 45380; 43239; 88305; 88342; J2405

== ENCOUNTER → 2025-08-15 | Outpatient (CLI) | payer SELFPAY, OTHER ==
--- NOTE | 2025-08-15 10:11 | US_ITS ---
PROCEDURE: ABDOMEN LIMITED 08/15/2025 REASON FOR EXAM: ABDOMINAL pain/PRESSURE TECHNIQUE: Procedure Code: USABDL Modality: US Procedure: ABDOMEN LIMITED FINDINGS: Liver: The liver has homogeneous echogenicity measures 14.7 cm. No mass identified. Gallbladder: Gallbladder is not visualized consistent with prior history of cholecystectomy. Common bile duct: Normal measuring measures 4 mm. Pancreas: Obscured by bowel gas. Kidneys: The right kidney measures 10.1 x 5 x 4.7 cm. There are probable peripelvic renal cysts. Spleen: Normal in size and echotexture measuring 5.7 x 2.5 x 2.6 cm . US/Abdomen Limited IMPRESSION: Normal bile ducts. There are probable peripelvic renal cysts present with no obstructive uropathy. Reading Location: [place] [id number]
== END | disposition home or self-care (01) ==
PROVIDERS: PCP Nurse Practitioner Family; Referring Provider Nurse Practitioner Acute Care; Visit Provider Nurse Practitioner Acute Care
DX: R10.13 Epigastric pain (principal); R14.0 Abdominal distension (gaseous); R63.4 Abnormal weight loss
CPT/HCPCS: 76705

== ENCOUNTER → 2025-09-05 | Outpatient (CLI) | payer OTHER, SELFPAY ==
[2025-09-05 10:05] LABS: Hematocrit 38.0 % (37-47); Hemoglobin 12.7 g/dL (12.0-15.0); Immature Granulocytes Count 0.010 X10^3/uL (0.0-0.0); Mean Corp Hgb Conc 33.4 g/dL (32-36); Mean Corpuscular Volume 92.0 fL (81-99); Mean Platelet Vol. 9.5 fl (6.2-12.0); NRBC Flagged by Analyzer 0 % (0-5); Platelet Count 237 K/mm3 (150-450); RBC Distribution Width CV 13.4 % (11.6-14.6); RBC Distribution Width SD 45.7 fl (35.1-43.9); Red Blood Count 4.13 M/mm3 (4.2-5.4); White Blood Count 7.5 K/mm3 (4.4-11.0)
[2025-09-05 10:54] LABS: AST(SGOT) 21 U/L (<=31); Alanine Aminotransfer ALT/SGPT 16 U/L (<=34); Albumin, Serum 4.3 g/dL (3.4-4.8); Alkaline Phosphatase 62 U/L (35-104); Anion Gap 9 (5-15); BUN 13 mg/dL (4-19); BUN/Creat Ratio 18.6 RATIO (10-20); Calcium,Total 9.5 mg/dL (7.6-11.0); Carbon Dioxide 26.6 mmol/L (21.0-32.0); Chloride 104 mmol/L (98-108); Globulin 2.8 g/dL (2.2-4.2); Glucose 100 mg/dL (70-99); Potassium 4.3 mmol/L (3.3-5.1)
== END | disposition home or self-care (01) ==
LOC: LAB 09:24
PROVIDERS: PCP Nurse Practitioner Family; Referring Provider Nurse Practitioner Acute Care; Visit Provider Nurse Practitioner Acute Care
DX: R63.4 Abnormal weight loss (principal); R14.0 Abdominal distension (gaseous); R10.13 Epigastric pain
CPT/HCPCS: 36415; 80053; 84443; 85025

== ENCOUNTER → 2025-09-22 | Outpatient (CLI) | payer SELFPAY, OTHER ==
--- NOTE | 2025-09-22 07:54 | CT_ITS ---
PROCEDURE: CT/Abdomen/Pelvis WITH Contrast
== END | disposition home or self-care (01) ==
LOC: CT 07:53
PROVIDERS: PCP Nurse Practitioner Family; Referring Provider Nurse Practitioner Acute Care; Visit Provider Nurse Practitioner Acute Care
DX: R10.13 Epigastric pain (principal); R14.0 Abdominal distension (gaseous); R63.4 Abnormal weight loss
CPT/HCPCS: 74177; Q9967